=== PATIENT | female | born 1995 | race Two or more races ===

== ENCOUNTER 2022-09-01 20:10 | Emergency (ER) | payer OTHER ==
[~2022-09-01] VITALS: Ht 154.9 cm; Wt 49.9 kg
[2022-09-01] MEDS ORDERED: MAG HYDROX/AL HYDROX/SIMETH 30 ML UDC PO ONE (22:00)
[2022-09-01] MEDS ORDERED: LIDOCAINE VISCOUS 2% UD 15 ML UDC MM ONE (22:00)
--- NOTE | 2022-09-01 22:00 | NUR ---
[facility] SENT BY URGENT CARE C/O SORE THROAT AND "BUMP IN THROAT". PT IS ALERT AND ORIENTED RR EVEN AND NON LABORED CONNECTED TO MONITOR
[2022-09-01] MEDS ORDERED: MAG HYDROX/AL HYDROX/SIMETH 30 ML UDC ONE (22:12)
[2022-09-01] MEDS ORDERED: LIDOCAINE VISCOUS 2% UD 15 ML UDC ONE (22:12)
--- NOTE | 2022-09-01 22:13 | NUR ---
XRAY AT BEDSIDE
--- NOTE | 2022-09-01 22:59 | NUR ---
Patient discharged to home in stable condition. Written and verbal after care instructions given. Patient verbalizes understanding of instruction. Pt ambulatory with a steady gait
[2022-09-01 23:01] VITALS: BP 127/64
== END 2022-09-01 23:01 | disposition home or self-care (01) ==
LOC: ER 20:15
DX: J02.9 Acute pharyngitis, unspecified (principal); Z87.19 Personal history of other diseases of the digestive system; Z87.09 Personal history of other diseases of the respiratory system; Z88.0 Allergy status to penicillin; Z88.8 Allergy status to other drugs, medicaments and biological substances
CPT/HCPCS: 70360-TC